=== PATIENT | female | born 1965 | race Hispanic/Latino ===

== ENCOUNTER 2016-11-14 12:29 | Day surgery (SDC) | payer OTHER ==
[~2016-11-14 12:29] MED LIST: ANCEF/STERILE WATER 2 GM/20 ML IV NR
[2016-11-14] MEDS ORDERED: NACL BACTERIOSTATIC INFILTRATI ONE (13:13)
[2016-11-14] MEDS ORDERED: DIPRIVAN 10 MG/ML IV ONE (13:43)
[2016-11-14] MEDS ORDERED: DILAUDID ONE (13:43)
[2016-11-14 13:47] LABS: Hematocrit 39.3 % (30.3-42.9); Hemoglobin 12.5 gm/dl (10.1-14.3)
[2016-11-14] MEDS ORDERED: VERSED IV NR (14:00)
[2016-11-14] MEDS ORDERED: PEPCID IV NR (14:00)
[2016-11-14] MEDS ORDERED: LACTATED RINGERS 1,000 ML IV SCH (14:00)
--- NOTE | 2016-11-14 14:02 | Anesthesia Consultation ---
Anesthesia Consult and Med Hx Date of service: 11/14/16 - Airway Anesthetic Teeth Evaluation: Good ROM Head & Neck: Adequate Mental/Hyoid Distance: Adequate Mallampati Class: Class II Intubation Access Assessment: Good - Pulmonary Exam CTA: Yes - Cardiac Exam Cardiac Exam: No Murmur - Pre-Operative Health Status ASA Pre-Surgery Classification: ASA1 Proposed Anesthetic Plan: General - Pulmonary Hx Smoking: No Hx Sleep Apnea: No (YESENIA PRE SCREEN LOW RISK) - Cardiovascular System Hx Hypertension: No - Hematic Hx Anemia: Yes (NOT RECENT) - Other Systems Hx Cancer: No
--- NOTE | 2016-11-14 14:02 | Anesthesia Day of Surgery ---
Anesthesia Day of Surgery - Day of Surgery Patient Examined: Yes Patient H&P Reviewed: Yes Patient is NPO: Yes
[2016-11-14] MEDS ORDERED: XYLOCAINE MPF 2% ONE (14:07)
[2016-11-14] MEDS ORDERED: TORADOL ONE (14:45)
[2016-11-14] MEDS ORDERED: ZOFRAN ONE (14:45)
[2016-11-14] MEDS ORDERED: WATER FOR IRRIG STERILE IR ONE ×2 (14:56)
[2016-11-14] MEDS ORDERED: OMNIPAQUE (300 MG) IR ONE (14:56)
--- NOTE | 2016-11-14 15:16 | Short Stay Summary ---
Short Stay Documentation Date of service: 11/14/16 - History H&P: obtained from office - Allergies and Medications Current Medications: Allergies No Known Allergies Allergy (Verified 11/01/16 09:40) Home Medications Medication Instructions Recorded Confirmed Last Taken Type Lactobacillus Acidophilus 1 mg PO DAILY 11/01/16 11/01/16 11/13/16 History [Acidophilus Probiotic] Multivit-Min/FA/Lycopen/Lutein 1 tab PO DAILY 11/01/16 11/01/16 11/13/16 History [Centrum Silver Tablet] Active Medications Cefazolin Sodium (Ancef/Sterile Water 2 Gm/20 Ml) 2 gm IV PREOP NR Stop: 11/14/16 23:59 Famotidine (Pepcid) 20 mg IV PREOP NR Stop: 11/15/16 13:59 Last Admin: 11/14/16 14:03 Dose: 20 mg Lactated Ringer's (Lactated Ringers) 1,000 mls @ 100 mls/hr IV DIRECT YARON Last Admin: 11/14/16 14:02 Dose: 100 mls/hr Midazolam HCl (Versed) 2 mg IV PREOP NR Stop: 11/14/16 23:59 Last Admin: 11/14/16 14:17 Dose: 2 mg - Brief post op/procedure progress note Date of procedure: 11/14/16 Pre-op diagnosis: hematuria Post-op diagnosis: same Procedure: cysto, rpg, hydrodistention Anesthesia: GETA Surgeon: SHARAN SCHERER Estimated blood loss: none Pathology: none Condition: stable - Hospital course Hospital course: cali on chart - Disposition Condition at discharge: Stable Disposition: DISCHARGED TO HOME OR SELFCARE Short Stay Discharge Plan Follow up with: PEDRO LUIS MCCULLOUGH MD [Primary Care Provider] - 7 Days
[2016-11-14 16:17] VITALS: BP 125/76
--- NOTE | 2016-11-14 16:30 | Post Anesthesia Evaluation ---
- Post Anesthesia Evaluation Patient Participated: Yes Airway Patent: Yes Stable Respiratory Function: Yes Nausea/Vomiting: No Temp > 96.8F: Yes Pain Manageable: Yes Adequeate Hydration: Yes Anesthesia Complications: No
--- NOTE | 2016-11-14 16:42 | Operative Report ---
PREOPERATIVE DIAGNOSIS: Hematuria. POSTOPERATIVE DIAGNOSIS: Hematuria. PROCEDURE: Cystoscopy, bilateral retrograde pyelograms, hydrodistention. SURGEON: Constantino Zuniga MD ANESTHESIA: General. ANESTHESIOLOGIST: Kaelyn Bradford MD ESTIMATED BLOOD LOSS: Minimal. FLUIDS: Crystalloid. COMPLICATIONS: No complications. INDICATIONS: This patient is a 51-year-old female seen in the office for hematuria. Her primary care physician is Dr. Liberty Mendiola, found to have microscopic hematuria. She also has a history of possible small right renal cyst in 2013 on CAT scan. However, recent CT scan of this in 2017 revealed normal tract, normal kidneys, bladder, obvious fibroid could be appreciated and a possible left renal mass. She was given a copy of the CT report for followup. DESCRIPTION OF PROCEDURE: The patient was taken to the operative suite, placed in a supine position. After adequate general anesthesia, placed in a dorsal lithotomy position, prepped and draped in a sterile fashion. Pancystourethroscopy was performed with a 22 Romansh Storz cystoscope, no acute bladder pathology. The manager cancer film was consistent with fibroids. Again, her bladder, no tumors or stones were noted. Both ureteral orifices in normal position. Bilateral retrograde pyelograms were obtained with an 8 Romansh Mcleod catheter and 8 mL of contrast. No filling defects or obstruction. Hydrodistention was performed. Bladder capacity 500 mL, revaluation no petechiae hemorrhage. Bladder was drained. She was extubated and taken to recovery room. She will go home on Cipro and [place] and follow up in the office. JOB# [id number] [facility]
[2016-11-14] MEDS ORDERED: PERCOCET 5/325 PO ONE (17:00)
--- NOTE | 2016-11-15 08:12 | Fluoroscopy Report ---
RETROGRADE PYELOGRAM: History: Hematuria. There is adequate filling of the ureters and intrarenal collecting systems with no filling defects or anatomic abnormalities identified. At least 3 large peripherally calcified uterine fibroids are suspected in the pelvis measuring up to 5-6 cm in diameter. Impression: Unremarkable retrograde pyelograms. Calcified uterine fibroids in the pelvis.
== END 2016-11-14 12:30 | disposition home or self-care (01) ==
LOC: OR 12:29
PROVIDERS: ATTEND Urology
DX: R31.29 Other microscopic hematuria (principal); D64.9 Anemia, unspecified
CPT/HCPCS: 36415; 52005; 74420; 81025; 85014; 85018; A4217; C1758; J0690; J1170; J1885; J2250; J2405; J2704; J7120; Q9967